=== PATIENT | male | born 1960 | race Caucasian/White ===

== ENCOUNTER 2020-08-29 07:24 | Day surgery (SDC) | payer BC ==
[~2020-08-29 07:24] MED LIST: Glycopyrrolate 0.2 MG/ML SDV ONE; Lactated Ringers 1,000 ML IV SCH; Lidocaine 2% 5 ML SDV ONE; Midazolam 1 MG/ML 2 ML SDV ONE; Propofol 200 MG/20 ML SDV ONE
--- NOTE | 2020-08-29 07:57 | PCM.PREANE ---
Preanesthetic Assessment - Anesthesia/Transfusion/Family Hx Anesthesia History: Prior Anesthesia Without Reaction Family History of Anesthesia Reaction: No Transfusion History: No Prior Transfusion(s) - Review of Systems General: No Symptoms Pulmonary: No Symptoms Cardiovascular: No Symptoms Gastrointestinal: No Symptoms Neurological: No Symptoms Other: Reports: None - Physical Assessment NPO Status Date: 08/29/20 NPO Status Time: 00:01 Vital Signs: Last Vital Signs Temp 96.4 F L 08/29/20 07:46 Pulse 104 H 08/29/20 07:46 Resp 15 08/29/20 07:46 BP 145/77 H 08/29/20 07:46 Pulse Ox 94 L 08/29/20 07:46 Height: 6 ft 2 in Weight: 256 lb ASA Class: 2 Mental Status: Alert & Oriented x3 Airway Class: Mallampati = 2 Dentition: Reports: Normal Dentition ROM/Head Extension: Limited/Partial Lungs: Clear to Auscultation, Normal Respiratory Effort Cardiovascular: Regular Rate, Regular Rhythm - Allergies Allergies/Adverse Reactions: Allergies Allergy/AdvReac Type Severity Reaction Status Date / Time No Known Allergies Allergy Verified 08/23/20 09:17 - Anesthesia Plan Pre-Op Medication Ordered: None - Acknowledgements Anesthesia Type Planned: General Anesthesia Pt an Appropriate Candidate for the Planned Anesthesia: Yes Alternatives and Risks of Anesthesia Discussed w Pt/Guardian: Yes Pt/Guardian Understands and Agrees with Anesthesia Plan: Yes Additional Comments: npo tob quit 2019 etoh rare upper incisor implants several back surgeries chronic pain takes 1-4 percocet 5mg a day last dose 1 week ago no cv problems obesity bmi 33 par no questions PreAnesthesia Questionnaire HEENT History: Cardiovascular History: Reports: High Cholesterol Respiratory History: Reports: None Gastrointestinal History: Reports: Colon Polyp, GERD Genitourinary History: Reports: None Neurological History: Reports: None Psychiatric History: Reports: None Endocrine/Metabolic History: Reports: Obesity/BMI 30+ Hematologic History: Reports: None Immunologic History: Reports: None Oncologic (Cancer) History: Reports: None Dermatologic History: Reports: None - Past Surgical History Head Surgeries/Procedures: Reports: None HEENT Surgical History: Reports: Oral Surgery Other HEENT Surgeries/Procedures: has 2 front dental implants GI Surgical History: Reports: Cholecystectomy, Colonoscopy Male Surgical History: Reports: Vasectomy Other Male Surgeries/Procedures: 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 Neurological Surgical History: Reports: Lumbar Spine Other Neurological Surgeries/Procedures: back surgery x2, last one 10/24- has rods in his back Musculoskeletal Surgical History: Reports: Other (See Below) Other Musculoskeletal Surgeries/Procedures:: hx of back surgery x2, hx of partial finger amputation - SUBSTANCE USE Tobacco Use Status *Q: Former Tobacco User Tobacco Use Within Last Twelve Months: No Recreational Drug Use History: No - HOME MEDS Home Medications: Home Meds Aspirin [Annie Chewable Aspirin] 81 mg PO DAILY 06/29/14 [History] Fenofibrate Nanocrystallized [Fenofibrate] 145 mg PO DAILY 06/29/14 [History] Lansoprazole 30 mg PO DAILY 06/29/14 [History] oxyCODONE HCl/Acetaminophen [oxyCODONE-Acetaminophen 5-325] 2 tab PO Q6H PRN 03/25/16 [History] Krill Oil/[place]-3/Dha/Epa [[place]-3 Krill Oil Softgel] 1,000 mg PO DAILY 06/13/16 [History] Niacin [Niacin ER] 500 mg PO DAILY 06/13/16 [History] Rosuvastatin Calcium 40 mg PO DAILY 08/23/20 [History] - CURRENT (IN HOUSE) MEDS Current Meds: Current Medications Lactated Ringer's (Ringers, Lactated) 1,000 mls @ 125 mls/hr IV ASDIRECTED PAT Discontinued Medications Glycopyrrolate (Glycopyrrolate 0.2 Mg/Ml Sdv) Confirm Administered Dose 0.2 mg .ROUTE .STK-MED ONE Stop: 08/29/20 07:16 Lidocaine (Lidocaine 2% 5 Ml Sdv) Confirm Administered Dose 5 ml .ROUTE .STK-MED ONE Stop: 08/29/20 07:16 Midazolam HCl (Midazolam 1 Mg/Ml 2 Ml Sdv) Confirm Administered Dose 2 mg .ROUTE .STK-MED ONE Stop: 08/29/20 07:14 Propofol (Propofol 200 Mg/20 Ml Sdv) Confirm Administered Dose 400 mg .ROUTE .STK-MED ONE Stop: 08/29/20 07:14
[2020-08-29] MEDS ORDERED: Propofol 200 MG/20 ML SDV ONE ×3 (08:36→09:03)
[2020-08-29 09:47] VITALS: BP 129/74; PULSE 89
--- NOTE | 2020-08-29 10:20 | PCM.OPNOTE ---
- General Post-Op/Procedure Note Date of Surgery/Procedure: 08/29/20 Operative Procedure(s): egd w bx. colonoscopy w snare Findings: see [id number] Pre Op Diagnosis: polyp hx and gerd Post-Op Diagnosis: Same Anesthesia Technique: Moderate Sedation Primary Surgeon: Balwinder Bernard Pathology: egd bx colon polyps Complications: None Condition: Good Free Text/Narrative:: Intake & Output 08/28/20 08/29/20 08/29/20 22:59 06:59 14:59 Intake Total 1075 Balance 1071
--- NOTE | 2020-08-29 10:31 | PCM48HPAN ---
Post Anesthesia Note - EVALUATION WITHIN 48HRS OF ANESTHETIC Vital Signs in Normal Range: Yes Patient Participated in Evaluation: Yes Respiratory Function Stable: Yes Airway Patent: Yes Cardiovascular Function Stable: Yes Hydration Status Stable: Yes Pain Control Satisfactory: Yes Nausea and Vomiting Control Satisfactory: Yes Mental Status Recovered: Yes Vital Signs: Last Vital Signs Temp 96.6 F L 08/29/20 09:42 Pulse 89 08/29/20 09:42 Resp 15 08/29/20 09:42 BP 129/74 08/29/20 09:42 Pulse Ox 94 L 08/29/20 09:42
--- NOTE | 2020-08-29 10:31 | PCM.POSTAN ---
POST ANESTHESIA ASSESSMENT - MENTAL STATUS Mental Status: Alert (no anesthetic problems), Oriented - VITAL SIGNS Vital Signs: Last Vital Signs Temp 96.6 F L 08/29/20 09:42 Pulse 89 08/29/20 09:42 Resp 15 08/29/20 09:42 BP 129/74 08/29/20 09:42 Pulse Ox 94 L 08/29/20 09:42 - RESPIRATORY Respiratory Status: Respiratory Rate WNL, Airway Patent, O2 Saturation Stable - CARDIOVASCULAR CV Status: Pulse Rate WNL, Blood Pressure Stable - GASTROINTESTINAL GI Status: No Symptoms - POST OP HYDRATION Hydration Status: Adequate & Stable
--- NOTE | 2020-08-29 17:45 | OR ---
SURGEON: Balwinder Bernard MD DATE OF PROCEDURE: 08/29/2020 PREOPERATIVE DIAGNOSIS: Polyp history as well as gastroesophageal reflux disease. POSTOPERATIVE DIAGNOSIS: Polyp history as well as gastroesophageal reflux disease. PROCEDURES PERFORMED: 1. Esophagogastroduodenoscopy with biopsy. 2. Colonoscopy with snare polypectomy. DESCRIPTION OF PROCEDURE: EGD: The patient was taken to the endoscopy room, and with the [employer], Diprivan was administered. A well-lubricated EGD scope was gently inserted through the oropharynx, down the esophagus, passing through the gastroesophageal junction, into the stomach. The mucosa was examined upon the passage. Any etiology will be noted. Once in the stomach, we continued to advance to the distal antrum, passed through the pylorus into the second portion of the duodenum. Again, the mucosa was examined for any abnormality and etiology. The scope was then retrieved back to the stomach and then retroflexed to look at the fundus of the stomach. If a biopsy was indicated, we will biopsy the antrum, body, and gastroesophageal junction. The air will be sucked out while the scope is retrieved to reduce the patient's discomfort. The patient tolerated the procedure well. There were no intraoperative complications. Dr. Bernard was present through the whole procedure. Prior to surgery, a time-out had been called, the patient identified, procedure identified and antibiotic administered. Colonoscopy with snare polypectomy: The patient was taken to the endoscopy room. A time out was called, patient identified, and procedure identified. Diprivan was then administrated. Patient went from awake to sleep, hearing doctor talking or door closing is normal. Perineum inspection and digital examination were then performed. A well-lubricated colonoscope was gently inserted through the rectum, advanced past the rectosigmoid junction, the descending colon, splenic flexure, transverse colon, hepatic flexure, ascending colon, arrived to the cecum. Cecum was identified as dictated in the finding. Then the scope was carefully withdrawn while attention was paid to the mucosal surface for any abnormality. Air will be sucked out during the scope withdrawal. At the rectum, retroflexed to examine any rectal diseases, fistula or hemorrhoids. During mucosal examination, abnormality or polyp encountered. Using snare equipment, the abnormality or the polyp was then snared off using electrocautery. The patient tolerated procedure well. There were no intraoperative complications, and Dr. Bernard was present throughout the whole procedure. FINDINGS: EGD findings: 1. The patient is easily sedated with [employer] and Diprivan, the patient is soundly snoring. 2. Oropharynx and proximal esophagus are free of disease, stricture, or inflammation. Distal esophagus at GE junction at 40 shows moderate amount of salmon-colored change, suggests GERD; and also flame-like structure suggests esophagitis. Stomach rugae have hypertrophy, very, very prominent, and much prominent than normal; and the stomach is very hard. Antrum looks fine. Duodenum looks grossly normal. Biopsy done at the antrum, body, and GE junction at 40 and sucked out the gas while scope pulling out. Retroflexed look at the fundus of stomach, there is no hiatal hernia; and during the whole study, there is no food particle, bile, or blood or ulcer observed. Colonoscopy findings: 1. The patient is easily sedated with [employer] and Diprivan, the patient is soundly snoring. 2. Bowel prep is average, but with large amount bubble requiring simethicone and irrigation. 3. Colon rather straightforward, but redundant at the sigmoid requiring some maneuver in order to get to the cecum. Cecum indicated by ileocecal fold, one-to-one indentation, appendiceal orifice. ScopeGuide is pointing south. The patient has several polyps. A 5 mm one is at 95 cm when the scope went in and had several small polyps at the distance 30, 25, whatever the path report specified, those are 1 to 2 mm polyps removed. There is also one polyp at the cecum at 130, a 1 mm polyp, removed with cold biopsy forceps. The one at 95 was removed with snare polypectomy. All else are removed with cold biopsy forceps. The patient has diverticulosis at left colon. No signs or symptoms of diverticulitis or inflammation. The patient also has a couple of diverticula at the right colon. No signs or symptom of diverticulitis. No inflammation, stricture, ulceration, AV malformation, bleeding, none of those; and the stool is yellow. The patient has hemorrhoid, mild, on the internal; and mild on the external. The patient would benefit from repeat colonoscopy 10 years from today or if clinically indicated otherwise, or the polyp pathology indicated otherwise. The patient probably will benefit to repeat the EGD as the patient has hypertrophy of the rugae and we will see what the biopsy results. CORINNE / JOHNNY /[id number]
== END 2020-08-29 10:05 | disposition home or self-care (01) ==
LOC: MW.SDS 07:24
PROVIDERS: ATTEND Surgery
DX: Z12.11 Encounter for screening for malignant neoplasm of colon (principal); D12.0 Benign neoplasm of cecum; K57.30 Diverticulosis of large intestine without perforation or abscess without bleeding; K21.9 Gastro-esophageal reflux disease without esophagitis; K64.8 Other hemorrhoids; K64.4 Residual hemorrhoidal skin tags; E66.9 Obesity, unspecified; E78.00 Pure hypercholesterolemia, unspecified; Z79.82 Long term (current) use of aspirin; Z79.899 Other long term (current) drug therapy; Z98.890 Other specified postprocedural states; Z87.891 Personal history of nicotine dependence; Z68.32 Body mass index [BMI] 32.0-32.9, adult
CPT/HCPCS: 43239; 45380; 45385; 88305; 88312; J2250; J2704; J3490; J7120; 00813

== ENCOUNTER 2022-05-21 07:23 | Day surgery (SDC) | payer BC ==
[~2022-05-21 07:23] MED LIST changes: -Glycopyrrolate 0.2 MG/ML SDV ONE; -Lidocaine 2% 5 ML SDV ONE; -Midazolam 1 MG/ML 2 ML SDV ONE; -Propofol 200 MG/20 ML SDV ONE
[2022-05-21] MEDS ORDERED: Propofol 200 MG/20 ML SDV ONE ×3 (08:55→09:42)
[2022-05-21] MEDS ORDERED: Lidocaine 2% 5 ML SDV ONE (08:55)
[2022-05-21 12:02] VITALS: BP 112/85; PULSE 87
== END 2022-05-21 10:30 | disposition home or self-care (01) ==
LOC: MW.SDS 07:23
PROVIDERS: ATTEND Surgery
DX: Z12.11 Encounter for screening for malignant neoplasm of colon (principal); D12.4 Benign neoplasm of descending colon; K62.1 Rectal polyp; K57.30 Diverticulosis of large intestine without perforation or abscess without bleeding; K64.8 Other hemorrhoids; K21.9 Gastro-esophageal reflux disease without esophagitis; E78.00 Pure hypercholesterolemia, unspecified; E66.9 Obesity, unspecified; Z86.010 Personal history of colon polyps; Z79.899 Other long term (current) drug therapy; Z79.82 Long term (current) use of aspirin; Z98.890 Other specified postprocedural states; Z87.891 Personal history of nicotine dependence; Z68.31 Body mass index [BMI] 31.0-31.9, adult
CPT/HCPCS: 45380; J2704; J7120; J3490